=== PATIENT | male | born 1975 | race Caucasian/White ===

== ENCOUNTER 2020-03-29 17:56 | Inpatient (IN) | payer BC ==
[2020-03-29] MEDS ORDERED: SODIUM CHLORIDE 0.9% 1,000 ML IV STA (19:00)
--- NOTE | 2020-03-29 19:14 | ED ---
General Adult HPI - General Chief complaint: Eye Problems Stated complaint: sent by optho Time Seen by Provider: 03/29/20 18:10 Source: patient, family, RN notes reviewed Mode of arrival: ambulatory Limitations: no limitations - History of Present Illness Initial comments: Patient is a pleasant 45-year-old male presenting to the emergency department with blurry vision from the right eye. Onset of symptoms was a couple of weeks ago. Patient had steroids and improved however once he finished steroids symptoms are worse again. Patient does have headache behind his right eye. Patient did have outpatient computed tomography scan done of his brain and sinuses yesterday that were reported to him as normal. His facility is not currently open at this time and we are unable to confirm films. Patient did see his primary care physician again today as well as ophthalmology. Dr. Benavidez diagnosed patient with optic neuritis. Primary care physician was going to admit to their hospital however [facility] had 27 holes in the emergency department and therefore patient was advised to come here. Patient did have similar symptoms once ago associated with his left eye that he saw an church communications administrator over video conference secondary to Reyes virus and was told there could be optic neuritis at that time. Symptoms resolved at that time with oral steroids. Patient did have his eyes dilated prior to arrival. No extremity weakness or paresthesias. - Related Data Allergies Allergy/AdvReac Type Severity Reaction Status Date / Time cephalexin [From Keflex] Allergy Unknown Verified 03/29/20 18:17 Review of Systems ROS Statement: Those systems with pertinent positive or pertinent negative responses have been documented in the HPI. ROS Other: All systems not noted in ROS Statement are negative. Constitutional: Denies: fever Eyes: Reports: vision change (Blurry vision right eye). Denies: eye pain ENT: Denies: ear pain Respiratory: Denies: cough Cardiovascular: Denies: chest pain Endocrine: Denies: fatigue Gastrointestinal: Denies: abdominal pain Genitourinary: Denies: urgency Musculoskeletal: Denies: back pain Skin: Denies: rash Neurological: Reports: headache. Denies: weakness, confusion Past Medical History Past Medical History: Hypertension History of Any Multi-Drug Resistant Organisms: None Reported Past Surgical History: Adenoidectomy, Tonsillectomy Past Psychological History: Anxiety Smoking Status: Never smoker Past Alcohol Use History: Occasional Past Drug Use History: None Reported General Exam Limitations: no limitations General appearance: alert, in no apparent distress Head exam: Present: normocephalic Eye exam: Present: other (Bilateral pupils dilated. Left pupil reacts, right pupil does not react.) Expanded Eyelids: Normal Inspection: Bilateral Pupils: Reactive: Right (Nonreactive on the left), Mydriasis: Bilateral Sclera/Conjunctival: Normal Inspection: Bilateral Posterior chamber: Papilledema: Right ENT exam: Present: normal exam Neck exam: Present: normal inspection Respiratory exam: Present: normal lung sounds bilaterally Cardiovascular Exam: Present: regular rate, normal rhythm GI/Abdominal exam: Present: soft. Absent: tenderness Extremities exam: Present: normal inspection Neurological exam: Present: alert, oriented X3, CN II-XII intact (Except for right pupil nonreactive). Absent: motor sensory deficit Expanded Neurological exam: Present: protecting the airway Patient oriented to: Present: person, place, time Speech: Present: fluid speech Cranial nerves: EOM's Intact: Normal, Facial Sensation: Normal Sensory exam: Upper Extremity Light Touch: Normal, Lower Extremity Light Touch: Normal Motor strength exam: RUE: 5, LUE: 5, RLE: 5, LLE: 5 Eye Response: (4) open spontaneously Motor Response: (6) obeys commands Verbal Response: (5) oriented Psychiatric exam: Present: normal affect, normal mood Skin exam: Present: normal color Course Vital Signs 03/29/20 18:12 Temperature 98.5 F Pulse Rate 87 Respiratory 18 Rate Blood Pressure 128/89 O2 Sat by Pulse 98 Oximetry Medical Decision Making - Medical Decision Making Patient updated on plan. Case was discussed with Dr. prajapati with [facility], who will admit covering for hospital call. He agrees with neurology consult and high-dose steroid 1 g daily for 3 days - Lab Data Result diagrams: 03/29/20 19:16 03/29/20 19:16 Lab Results 03/29/20 03/29/20 Range/Units 19:16 19:16 WBC 10.7 H (3.8-10.6) k/uL RBC 5.00 (4.30-5.90) m/uL Hgb 17.2 (13.0-17.5) gm/dL Hct 50.3 (39.0-53.0) % MCV 100.8 H (80.0-100.0) fL MCH 34.4 (25.0-35.0) pg MCHC 34.1 (31.0-37.0) g/dL RDW 12.0 (11.5-15.5) % Plt Count 219 (150-450) k/uL Neutrophils % 80 % Lymphocytes % 11 % Monocytes % 6 % Eosinophils % 1 % Basophils % 1 % Neutrophils # 8.5 H (1.3-7.7) k/uL Lymphocytes # 1.2 (1.0-4.8) k/uL Monocytes # 0.6 (0-1.0) k/uL Eosinophils # 0.1 (0-0.7) k/uL Basophils # 0.1 (0-0.2) k/uL Sodium 137 (137-145) mmol/L Potassium 3.8 (3.5-5.1) mmol/L Chloride 107 (98-107) mmol/L Carbon Dioxide 24 (22-30) mmol/L Anion Gap 6 mmol/L BUN 22 H (9-20) mg/dL Creatinine 0.98 (0.66-1.25) mg/dL Est GFR (CKD-EPI)AfAm >90 (>60 ml/min/1.73 sqM) Est GFR (CKD-EPI)NonAf >90 (>60 ml/min/1.73 sqM) Glucose 110 H (74-99) mg/dL Calcium 9.3 (8.4-10.2) mg/dL Magnesium 2.1 (1.6-2.3) mg/dL Total Bilirubin 0.7 (0.2-1.3) mg/dL AST 23 (17-59) U/L ALT 30 (4-49) U/L Alkaline Phosphatase 80 (38-126) U/L Total Protein 6.4 (6.3-8.2) g/dL Albumin 3.9 (3.5-5.0) g/dL Disposition Clinical Impression: Optic neuritis Disposition: ADMITTED IP TO THIS HOSP Is patient prescribed a controlled substance at d/c from ED?: No Referrals: Michael Rose MD [Primary Care Provider] - 1-2 days Decision Time: 19:38
[2020-03-29 19:26] LABS: Basophils # (A) 0.1 k/uL (0-0.2); Basophils % (A) 1 %; Eosinophils # (A) 0.1 k/uL (0-0.7); Eosinophils % (A) 1 %; HCT 50.3 % (39.0-53.0); HGB 17.2 gm/dL (13.0-17.5); Lymphocytes # (A) 1.2 k/uL (1.0-4.8); Lymphocytes % (A) 11 %; MCH 34.4 pg (25.0-35.0); MCHC 34.1 g/dL (31.0-37.0); MCV 100.8 fL (80.0-100.0); Mean Platelet Volume 6.9; Monocytes # (A) 0.6 k/uL (0-1.0); Monocytes % (A) 6 %; Neutrophils # (A) 8.5 k/uL (1.3-7.7); Neutrophils % (A) 80 %; Platelet Count 219 k/uL (150-450); WBC 10.7 k/uL (3.8-10.6)
[2020-03-29 19:35] LABS: ALT 30 U/L (4-49); AST 23 U/L (17-59); African American GFR (CKD) >90 (>60 ml/min/1.73 sqM); Albumin 3.9 g/dL (3.5-5.0); Alkaline Phosphatase 80 U/L (38-126); Anion Gap 6 mmol/L; Blood Urea Nitrogen 22 mg/dL (9-20); Calcium 9.3 mg/dL (8.4-10.2); Carbon Dioxide 24 mmol/L (22-30); Chloride 107 mmol/L (98-107); Glucose 110 mg/dL (74-99); Magnesium 2.1 mg/dL (1.6-2.3); Non-African American GFR(CKD) >90 (>60 ml/min/1.73 sqM); Potassium 3.8 mmol/L (3.5-5.1); Sodium 137 mmol/L (137-145); Total Bilirubin 0.7 mg/dL (0.2-1.3); Total Protein 6.4 g/dL (6.3-8.2)
[2020-03-29] MEDS ORDERED: MORPHINE SULFATE 4 MG/ML SYRINGE IV PRN (19:45)
[2020-03-29] MEDS ORDERED: traMADol 50 MG TAB PO PRN (19:45)
[2020-03-29] MEDS ORDERED: NALOXONE 0.4 MG/ML 1 ML VIAL IV PRN (19:45)
[2020-03-29] MEDS ORDERED: methylPREDNISolone SOD SUCC 1,000 MG in SODIUM CHLORIDE 0.9% 250 ML IVPB ONE (20:00)
[2020-03-29] MEDS: SODIUM CHLORIDE 0.9% 1,000 ML IV SCH (20:05)
--- NOTE | 2020-03-29 20:08 | XR ---
EXAMINATION: XR chest 2V DATE AND TIME: 03/29/2020 7:36 PM CLINICAL INDICATION: Headache, vision changes, weak TECHNIQUE: Frontal and lateral views COMPARISON: None FINDINGS: The lungs are clear. The pleural spaces are negative. The cardiac silhouette is not enlarged. The remainder of the mediastinal silhouette is unremarkable. The skeletal structures and soft tissues are negative for acute findings. IMPRESSION: NO ACUTE PROCESS.
--- NOTE | 2020-03-29 21:12 | P.HPIM ---
History of Present Illness H&P Date: 03/29/20 The patient is a 45-year-old male with no known PMH who presented to the ED with complaints of blurred vision and headache. Patient reports that he initially had similar symptoms of left eye pain and blurred vision along with a left-sided throbbing headache back in August 2019 when he was seen by his primary who attributed the symptoms to a sinus infection as the patient also had rhinorrhea and congestion. The patient was given a steroid taper with which he quickly improved and his symptoms resolved. He then had recurrence of his symptoms 3 weeks ago when he developed right eye pain, blurred vision, along with a throbbing right-sided headache. He was again seen by his primary who give him another course of steroids with which she improved. The patient however again had recurrence of his symptoms this Tuesday 03/27 with the right eye symptoms and headache. He notes that the headache improves with Tylenol and Advil though was not fully relieved, currently at a 3 out of 10, improved by laying on the opposite side, not worsened with positional changes. He reports some eye pain with looking to each side along with his vision being blurry and somewhat dark in the right eye, with no issues with his left eye. The patient had a computed tomography scan done as ordered by his primary care physician yesterday which he was told was unremarkable. He was given an IM steroid shot which as per the patient provided him with only mild relief. The patient was seen by an manager motor earlier today who was concerned for optic neuritis and advised the patient to come to the emergency room to receive steroids. The patient however denied weakness, numbness, tingling. Denied urinary incontinence or discomfort. Patient also denied recent URIs or current congestion or rhinorrhea. Denied dizziness or loss of consciousness. Today Thursday, shortness of breath, fever, chills, nausea, vomiting, or abdominal pain or diarrhea. Laboratory evaluation was reviewed. Chest x-ray was unremarkable. Review of Systems Pertinent positives and negatives as discussed in HPI, a complete review of systems was performed and all other systems are negative. Past Medical History Past Medical History: Hypertension History of Any Multi-Drug Resistant Organisms: None Reported Past Surgical History: Adenoidectomy, Tonsillectomy Past Psychological History: Anxiety Smoking Status: Never smoker Past Alcohol Use History: Occasional Past Drug Use History: None Reported Medications and Allergies Home Medications Medication Instructions Recorded Confirmed Type Acetaminophen [Tylenol] 500 mg PO Q4-6H PRN 03/29/20 03/29/20 History Cetirizine HCl [Zyrtec] 10 mg PO DAILY PRN 03/29/20 03/29/20 History Ergocalciferol (Vitamin D2) 50,000 unit PO Q7D 03/29/20 03/29/20 History [Drisdol] Linette Westbrook (Unknown Stren 1 cap PO DAILY 03/29/20 03/29/20 History Ibuprofen [Motrin Ib] 800 mg PO Q8H PRN 03/29/20 03/29/20 History Metoprolol Tartrate 25 mg PO BID 03/29/20 03/29/20 History Milk Thistle 1 cap PO DAILY 03/29/20 03/29/20 History Vit C/E/Zn/Coppr/Lutein/Zeaxan 1 cap PO DAILY 03/29/20 03/29/20 History [Preservision Areds 2 Softgel] Vitamin B Complex/Folic Acid 0.4 mg PO DAILY 03/29/20 03/29/20 History [B-Complex Tablet] Vitamin C/Biotin [Hair, Skin and 1 tab PO DAILY 03/29/20 03/29/20 History Nails] Allergies Allergy/AdvReac Type Severity Reaction Status Date / Time cephalexin [From Keflex] Allergy Unknown Verified 03/29/20 20:03 Physical Exam Vitals: Vital Signs Temp Pulse Resp BP Pulse Ox 03/29/20 20:12 81 16 141/98 98 03/29/20 18:12 98.5 F 87 18 128/89 98 Intake and Output 03/29/20 03/29/20 03/29/20 06:59 14:59 22:59 Other: Weight 85.729 kg General: non toxic, no distress, appears at stated age, normal weight Derm: no unusual rashes/lesions no unusual ecchymoses, warm, dry Head: atraumatic, normocephalic, symmetric Eyes: EOMI, no lid lag, anicteric sclera, pupils equal round reactive to light, no facial tenderness, reported eye pain upon medial and lateral gaze of the right eye ENT: Nose and ears atraumatic, no thrush, no pharyngeal erythema Neck: No thyromegaly, no cervical lymphadenopathy, trachea midline, supple Mouth: no lip lesion, mucus membranes moist Cardiovascular: S1S2 reg, no murmur, positive posterior tibial pulse bilateral, no edema, capillary refill less than 2 seconds Lungs: CTA bilateral, no rhonchi, no rales , no accessory muscle use Abdominal: soft, nontender to palpation, no guarding, no appreciable organomegaly, normal bowel sounds Ext: no gross muscle atrophy, muscle strength 5 out of 5 in all 4 extremities grossly, no contractures, Neuro: CN II-XI grossly intact, light touch intact all 4 extremities, finger to nose within normal limits, kernigs and brudzinskis negative Psych: Alert, oriented, appropriate affect Results CBC & Chem 7: 03/29/20 19:16 03/29/20 19:16 Labs: Abnormal Lab Results - Last 24 Hours (Table) 03/29/20 03/29/20 Range/Units 19:16 19:16 WBC 10.7 H (3.8-10.6) k/uL MCV 100.8 H (80.0-100.0) fL Neutrophils # 8.5 H (1.3-7.7) k/uL BUN 22 H (9-20) mg/dL Glucose 110 H (74-99) mg/dL Assessment and Plan Plan: Suspected optic neuritis -Continue with Solu-Medrol 250 q6h for total of 3 days -Neuro checks and visual acuity testing -Neurology consulted -Insulin supplementation scale -Obtain MRI orbit and Brain. Will defer to Neurology regarding need for LP for suspected MS diagnosis. Leukocytosis, likely reactive to recent steroid doses -Monitor for now DVT prophylaxis -Heparin subq The patient is admitted with an anticipated greater than 2 midnight stay for evaluation of optic neuritis CODE STATUS: Full Code Discussed with: Patient Anticipated discharge date: 03/[address]: Home A total of 35 minutes was spent on the care of this complex patient more than 50% of the time was spent in counseling and care coordination.
[2020-03-30] MEDS: HEPARIN SODIUM,PORCINE 5,000 UNIT/ML 1 ML VIAL SQ SCH ×4 (01:01→23:59)
[2020-03-30 06:11] LABS: Appearance,Urine Clear (Clear); Bilirubin,Urine Negative (Negative); Blood,Urine Negative (Negative); Color,Urine Yellow; Glucose,Urine (UA) Trace (Negative); Ketones,Urine Trace (Negative); Leukocyte Esterase,Urine Negative (Negative); Nitrite,Urine Negative (Negative); Protein,Urine Negative (Negative); Specific Gravity,Urine 1.019 (1.001-1.035); Urobilinogen,Urine <2.0 mg/dL (<2.0)
[2020-03-30 07:07] LABS: Glucose,Whole Blood 142 mg/dL (75-99)
[2020-03-30] MEDS: METOPROLOL TARTRATE 25 MG TAB PO SCH ×2 (08:25→20:41)
[2020-03-30] MEDS: INSULIN ASPART (NovoLOG) 100 UNIT/ML VIAL SQ SCH ×4 (08:26→20:40)
[2020-03-30] MEDS: PANTOPRAZOLE 40 MG/10 ML VIAL IVP SCH (08:29)
[2020-03-30] MEDS ORDERED: LORazepam 0.5 MG TAB PO ONE (10:30)
--- NOTE | 2020-03-30 11:23 | P.CNNES ---
History of Present Illness Consult date: 03/30/20 Requesting physician: Humberto Ivan Reason for Consult: concern for optic neuritis History of Present Illness: This is a 45-year-old left-handed gentleman with medical history of hypertension that presented to emergency department on 03/29/2020 for complaints of blurry vision over the right eye as well as headaches. The symptoms began was about 3 weeks ago when he developed right eye pain (with any movement), blurry vision along with Pain around and retroorbital pain. Patient was seen by his primary care physician and was given a tapering dose of steroids which at he improved. Then on 03/27/2020 patient had the again recurrence of the right eye pain with headache. He felt the pain improved with Tylenol and Advil but not fully relieved. Patient had that a CT scan that was done by his primary care physician 2 days ago and the was reported unremarkable per patient. He was given IM steroids which with mild relief. He was seen by an farm contractor buyer earlier yesterday (Dr. Benavidez) and notified patient he had right optic nerve swelling. He thought he had optic neuritis and advised the patient come to the emergency to receive IV steroids. Of note patient had similar presentation to the left eye and the patient had rhinorrhea and congestion in August 2019. He was seen by his primary care physician where he attributed to sinus infection the patient the was given a tapering the steroid dose. His symptoms resolved. Of note patient stated that he was supposed to get MRI of the brain as well as the orbits when he had that his symptoms of the left eye but since his symptoms resolved he decided not to get it. Of note the patient denies of any fever, neck pain or lower back pain that. Denies of weakness, numbness or any difficulty getting his words out. He denies of any diplopia. She denies of any urinary or bowel symptoms. Patient denies of any family history similar to his presentation. The patient denies of family history of multiple sclerosis. In the hospital because of the suspected optic neuritis he was given 1gm of Solumedrol yesterday and patient felt his pain is resolved but continues to have blurry vision out of right eye. He felt the 1 g dose caused him to have palpitation, he didn't feel right when he received a 1 g dose. He was placed on Solu-Medrol 250 mg every 6 hours for total 3 days. And MRI of the brain as well as the orbits was ordered by the primary team. Review of Systems Review of system: The 12 point system was reviewed and apparent positive and negative per HPI. Past Medical History Past Medical History: Hypertension Additional Past Medical History / Comment(s): Left optical neuritis History of Any Multi-Drug Resistant Organisms: None Reported Past Surgical History: Adenoidectomy, Tonsillectomy Past Anesthesia/Blood Transfusion Reactions: No Reported Reaction Past Psychological History: Anxiety Smoking Status: Never smoker Past Alcohol Use History: Occasional Past Drug Use History: None Reported Medications and Allergies Home Medications Medication Instructions Recorded Confirmed Type Acetaminophen [Tylenol] 500 mg PO Q4-6H PRN 03/29/20 03/29/20 History Cetirizine HCl [Zyrtec] 10 mg PO DAILY PRN 03/29/20 03/29/20 History Ergocalciferol (Vitamin D2) 50,000 unit PO Q7D 03/29/20 03/29/20 History [Drisdol] Linette Westbrook (Unknown Stren 1 cap PO DAILY 03/29/20 03/29/20 History Ibuprofen [Motrin Ib] 800 mg PO Q8H PRN 03/29/20 03/29/20 History Metoprolol Tartrate 25 mg PO BID 03/29/20 03/29/20 History Milk Thistle 1 cap PO DAILY 03/29/20 03/29/20 History Vit C/E/Zn/Coppr/Lutein/Zeaxan 1 cap PO DAILY 03/29/20 03/29/20 History [Preservision Areds 2 Softgel] Vitamin B Complex/Folic Acid 0.4 mg PO DAILY 03/29/20 03/29/20 History [B-Complex Tablet] Vitamin C/Biotin [Hair, Skin and 1 tab PO DAILY 03/29/20 03/29/20 History Nails] Allergies Allergy/AdvReac Type Severity Reaction Status Date / Time cephalexin [From Keflex] Allergy Unknown Verified 03/29/20 20:03 Physical Examination - Vital Signs Vital Signs: Vital Signs Temp Pulse Pulse Resp BP BP Pulse Ox 03/30/20 05:00 97.6 F 94 18 126/78 97 03/30/20 00:10 20 03/29/20 21:00 97.8 F 101 H 20 143/93 99 03/29/20 20:35 20 03/29/20 20:12 81 16 141/98 98 03/29/20 18:12 98.5 F 87 18 128/89 98 Intake and Output 03/29/20 03/29/20 03/30/20 14:59 22:59 06:59 Intake Total 400 600 Balance 400 600 Intake: Intake, IV Titration 400 600 Amount Sodium Chloride 0.9% 1, 150 600 000 ml @ 75 mls/hr IV . [id number] STA Rx#:[id number] methylPREDNISolone SOD 250 SUCC 1,000 mg In Sodium Chloride 0.9% 250 ml @ 250 mls/hr IVPB ONCE ONE Rx#:[id number] Other: Voiding Method Toilet Toilet Urinal Urinal # Voids 2 2 Weight 85.729 kg GENERAL: The patient is lying in bed and is not in acute distress. CHEST: The heart rate is regular rate rhythm. No murmurs to auscultation. LUNG: Clear to auscultation bilaterally no wheezing noted throughout. Not labored breathing. ABDOMEN/GI: Bowel sounds present in all 4 quadrants. No tenderness to palpation throughout. NEUROLOGICAL: Higher mental function: The patient is awake, alert, oriented to self, place and time. Patient is following commands. No aphasia and no neglect. Cranial nerves: The pupils are round , equal (4mm bilaterally) and reactive to light and accommodation. +ve afferent pupillary defect on the right eye. Visual equity is 20/100 OD and with correction. Visual chen are full to confrontation throughout. Extraocular movement is intact no nystagmus is noted. Facial sensation is normal to touch throughout. The facial strength is normal throughout. Hearing is normal bilaterally to hand rub. Tongue is midline and moved [id number] without any difficulty. No dysarthria is noted. Shoulder shrug is normal bilaterally. Motor: Gait is normal with normal arm swings. The strength is 5 over 5 throughout. Normal tone and bulk. Cerebellum: Normal finger to nose bilaterally. Sensation: Sensation is normal to touch throughout. Reflexes (right/left): 2+ throughout. Plantars are downgoing bilaterally. Results AST 23, ALT of 30. C-reactive protein is less than 5. - Laboratory Findings CBC and BMP: 03/29/20 19:16 03/29/20 19:16 Abnormal Lab Findings: Abnormal Labs 03/29/20 03/29/20 03/30/20 19:16 19:16 06:00 WBC 10.7 H MCV 100.8 H Neutrophils # 8.5 H BUN 22 H Glucose 110 H Urine Glucose (UA) Trace H Urine Ketones Trace H Assessment and Plan Assessment: Suspected optic neuritis of right eye Likely old left Optic neuritis Leukocytosis is reactive from steroid use Hx Hypertension Plan: Pending MRI the brain as well as the orbits with and without gadolinium. I also ordered MRI of the C-spine as well. Patient not too enthusiastic about getting a lumbar puncture so will hold off until getting the images. Patient received one time dose of Solu-Medrol 1000 mg yesterday. Currently he is on Solu-Medrol 250 mg every 6 hours. I will change it to 500 mg twice a day for total 2 days (stop date on 04/01/20 at 2200) since he received 1 gm yesterday. After getting MRI the brain and orbit recommend getting lumbar puncture. CSF opening and closing pressure, cell count, protein, CSF glucose and oligoclonal bands. We'll consult anesthesiology for the lumbar puncture. Placed the patient on glucose monitoring 3 times a day. I so placed him on insulin NovoLog sliding scale. For GI prophylaxis the patient is on Protonix. Plan we'll discussed with the patient. Thank you for the consultation. Addendum: I received a call from the nurse that the patient cannot get MRI since he was claustrophobic. I notified the nurse that I can give him Ativan but he refused. He said that he will get an open MRI as an outpatient. Patient also refused to get lumbar puncture. He is in agreement of getting two days of IV steroids. He said that the sooner he leaves the hospital the better. Ilya Bass MD Neuro-hospitalist Time with Patient: Greater than 30
[2020-03-30 12:38] LABS: Glucose,Whole Blood 130 mg/dL (75-99)
[2020-03-30 17:15] LABS: Glucose,Whole Blood 146 mg/dL (75-99)
[2020-03-30] MEDS: SODIUM CHLORIDE 0.9% 1,000 ML IV SCH (19:28)
[2020-03-30] MEDS ORDERED: methylPREDNISolone SOD SUCC 1,000 MG in SODIUM CHLORIDE 0.9% 250 ML IVPB SCH (20:00)
[2020-03-30] MEDS: ACETAMINOPHEN TAB 325 MG TAB PO PRN (20:42)
[2020-03-30 20:45] LABS: Glucose,Whole Blood 146 mg/dL (75-99)
[2020-03-31 07:07] LABS: Glucose,Whole Blood 134 mg/dL (75-99)
[2020-03-31] MEDS: HEPARIN SODIUM,PORCINE 5,000 UNIT/ML 1 ML VIAL SQ SCH ×3 (07:37→21:24)
[2020-03-31] MEDS: INSULIN ASPART (NovoLOG) 100 UNIT/ML VIAL SQ SCH ×4 (07:37→20:22)
[2020-03-31] MEDS: PANTOPRAZOLE 40 MG/10 ML VIAL IVP SCH (08:11)
[2020-03-31] MEDS: METOPROLOL TARTRATE 25 MG TAB PO SCH ×2 (08:12→20:22)
--- NOTE | 2020-03-31 09:53 | P.PN ---
Subjective Progress Note Date: 03/31/20 Patient is doing fairly well today. He denies any eye pain. He reports mild vision problem in his right side that he described as ''fading''. He was unable to complete MRI yesterday secondary to severe claustrophobia despite getting Ativan before the test. He already scheduled an outpatient open MRI on the of the month. No acute events overnight. Objective - Vital Signs Vital signs: Vital Signs Temp 97.5 F L 03/31/20 05:00 Pulse 106 H 03/31/20 05:00 Resp 18 03/31/20 05:00 BP 121/81 03/31/20 05:00 Pulse Ox 99 03/31/20 05:00 Intake & Output 03/30/20 03/31/20 03/31/20 18:59 06:59 18:59 Intake Total 1930 Output Total 700 Balance 1930 -700 Intake: Intake, IV Titration 340 Amount Sodium Chloride 0.9% 1, 160 000 ml @ 20 mls/hr IV . Q24H FRANCIE Rx#:[id number] Sodium Chloride 0.9% 1, 80 000 ml @ 75 mls/hr IV . [id number] STA Rx#:[id number] methylPREDNISolone SOD 100 SUCC 500 mg In Sodium Chloride 0.9% 100 ml @ 200 mls/hr IVPB Q12H FRANCIE Rx#:[id number] Oral 1590 Output: Urine 700 Other: Voiding Method Toilet Toilet Urinal # Voids 3 2 - Exam General: The patient is awake and alert, in no distress Eye: there is normal conjunctiva bilaterally. Neck: The neck is supple, there is no JVD. Cardiovascular: Normal S1-S2, no S3-S4, no murmurs. Respiratory: Lungs clear to auscultation bilaterally Gastrointestinal: Abdomen is soft, nontender Musculoskeletal: There is no pedal edema. Neurological:. Speech is normal. Skin: Skin is warm and dry - Labs CBC & Chem 7: 03/29/20 19:16 03/29/20 19:16 Labs: Abnormal Lab Results - Last 24 Hours (Table) 03/30/20 03/30/20 03/30/20 Range/Units 12:34 17:11 20:40 POC Glucose (mg/dL) 130 H 146 H 146 H (75-99) mg/dL 10/10/20 Range/Units 06:56 POC Glucose (mg/dL) 134 H (75-99) mg/dL Assessment and Plan Assessment: This is a 45-year-old male with past medical history significant for essential hypertension who presented to the emergency room complaining of blurry vision that started before the night of his presentation. Patient was seen by an raymond mill operator prior to ER presentation was thought to have acute optic neuritis. He was sent to be admitted to the hospital for further management of his medical problems noted below. 1. Optic neuritis of the right eye, started on high-dose IV Solu-Medrol as directed by neurology. Seen and evaluated by neurology. Last dose of Solu- Medrol would be 10/10 at night. He was unable to complete MRI secondary to severe claustrophobia despite getting Ativan before the test. He already scheduled an outpatient open MRI on the of the month. 2. Essential hypertension, blood pressure well-controlled 3. Mild leukocytosis, secondary to steroid use. No evidence of infection.
[2020-03-31 17:15] LABS: Glucose,Whole Blood 132 mg/dL (75-99)
[2020-03-31] MEDS: SODIUM CHLORIDE 0.9% 1,000 ML IV SCH (19:26)
[2020-03-31 20:11] LABS: Glucose,Whole Blood 142 mg/dL (75-99)
[2020-03-31] MEDS: ACETAMINOPHEN TAB 325 MG TAB PO PRN (20:24)
[2020-04-01 04:26] VITALS: BP 120/78; PULSE 80; RESP 14; TEMP 97.4
[2020-04-01 07:05] LABS: Glucose,Whole Blood 122 mg/dL (75-99)
[2020-04-01] MEDS: INSULIN ASPART (NovoLOG) 100 UNIT/ML VIAL SQ SCH (07:23)
[2020-04-01] MEDS: HEPARIN SODIUM,PORCINE 5,000 UNIT/ML 1 ML VIAL SQ SCH (07:23)
[2020-04-01] MEDS: PANTOPRAZOLE 40 MG/10 ML VIAL IVP SCH (09:02)
[2020-04-01] MEDS: METOPROLOL TARTRATE 25 MG TAB PO SCH (09:02)
--- NOTE | 2020-04-01 09:25 | P.DS ---
Providers Date of admission: 03/29/20 19:47 Expected date of discharge: 04/01/20 Attending physician: Kymberly Arana MD Consults: 03/29/20 19:45 Consult Physician Urgent Consulting Provider: Ilya Bass Consult Reason/Comments: Evaluate for optic neuritis Do you want consulting provider notified?: Yes Primary care physician: [facility] Course: This is a 45-year-old male with past medical history significant for essential hypertension who presented to the emergency room complaining of blurry vision that started before the night of his presentation. Patient was seen by an steel hanger prior to ER presentation was thought to have acute optic neuritis. He was sent to be admitted to the hospital for further management of his medical problems noted below. 1. Optic neuritis of the right eye, started on high-dose IV Solu-Medrol as directed by neurology. Seen and evaluated by neurology. Last dose of Solu- Medrol would be 10/10 at night. He was unable to complete MRI secondary to severe claustrophobia despite getting Ativan before the test. He already scheduled an outpatient open MRI on the of the month. 2. Essential hypertension, blood pressure well-controlled Patient advised to get open MRI done outpatient and follow up with neurology for further workup and to rule out underlying MS Patient will be discharged home in a stable condition. For further details about this hospitalization please refer to the electronic chart. Time spent on discharge > 30 minutes including counseling and coordination of Patient Condition at Discharge: Fair Plan - Discharge Summary Discharge Rx Participant: No New Discharge Prescriptions: Continue Vitamin C/Biotin [Hair, Skin and Nails] 1 tab PO DAILY Vitamin B Complex/Folic Acid [B-Complex Tablet] 0.4 mg PO DAILY Milk Thistle 1 cap PO DAILY Vit C/E/Zn/Coppr/Lutein/Zeaxan [Preservision Areds 2 Softgel] 1 cap PO DAILY Linette Westbrook (Unknown Stren 1 cap PO DAILY Ibuprofen [Motrin Ib] 800 mg PO Q8H PRN PRN Reason: Pain Cetirizine HCl [Zyrtec] 10 mg PO DAILY PRN PRN Reason: Allergy Symptoms Acetaminophen [Tylenol] 500 mg PO Q4-6H PRN PRN Reason: Pain Metoprolol Tartrate 25 mg PO BID Ergocalciferol (Vitamin D2) [Drisdol] 50,000 unit PO Q7D Discharge Medication List Acetaminophen [Tylenol] 500 mg PO Q4-6H PRN 03/29/20 [History] Cetirizine HCl [Zyrtec] 10 mg PO DAILY PRN 03/29/20 [History] Ergocalciferol (Vitamin D2) [Drisdol] 50,000 unit PO Q7D 03/29/20 [History] Linette Westbrook (Unknown Stren 1 cap PO DAILY 03/29/20 [History] Ibuprofen [Motrin Ib] 800 mg PO Q8H PRN 03/29/20 [History] Metoprolol Tartrate 25 mg PO BID 03/29/20 [History] Milk Thistle 1 cap PO DAILY 03/29/20 [History] Vit C/E/Zn/Coppr/Lutein/Zeaxan [Preservision Areds 2 Softgel] 1 cap PO DAILY 03/29/20 [History] Vitamin B Complex/Folic Acid [B-Complex Tablet] 0.4 mg PO DAILY 03/29/20 [History] Vitamin C/Biotin [Hair, Skin and Nails] 1 tab PO DAILY 03/29/20 [History] Follow up Appointment(s)/Referral(s): Michael Rose MD [Primary Care Provider] - 1-2 days Activity/Diet/Wound Care/Special Instructions: Please keep outpatient appointment for an open MRI on 04/04/2020 Discharge Disposition: HOME SELF-CARE
== END 2020-04-01 11:34 | disposition home or self-care (01) | DRG 123 ==
LOC: EC 17:56 → 6NMEDSUR 19:47
PROVIDERS: ADMIT Internal Medicine; ATTEND Internal Medicine
DX: H46.9 Unspecified optic neuritis (principal); I10 Essential (primary) hypertension; F41.9 Anxiety disorder, unspecified; T38.0X5A Adverse effect of glucocorticoids and synthetic analogues, initial encounter; D72.829 Elevated white blood cell count, unspecified; F40.240 Claustrophobia; Z88.1 Allergy status to other antibiotic agents; Z90.89 Acquired absence of other organs; Z79.899 Other long term (current) drug therapy
CPT/HCPCS: 36415; 71046; 80053; 81003; 83735; 85025; 85652; 86140; 86780; 96360; 99285

== ENCOUNTER → 2020-05-23 | Outpatient (CLI) | payer BC ==
[2020-05-23 12:24] LABS: Basophils # (A) 0.1 k/uL (0-0.2); Basophils % (A) 1 %; Eosinophils # (A) 0.1 k/uL (0-0.7); Eosinophils % (A) 1 %; HGB 16.9 gm/dL (13.0-17.5); Lymphocytes # (A) 1.7 k/uL (1.0-4.8); Lymphocytes % (A) 22 %; MCH 34.8 pg (25.0-35.0); MCHC 34.5 g/dL (31.0-37.0); MCV 100.7 fL (80.0-100.0); Mean Platelet Volume 6.8; Monocytes # (A) 0.5 k/uL (0-1.0); Monocytes % (A) 7 %; Neutrophils # (A) 5.2 k/uL (1.3-7.7); Neutrophils % (A) 68 %; Platelet Count 237 k/uL (150-450); RBC 4.87 m/uL (4.30-5.90); RDW 12.4 % (11.5-15.5); WBC 7.7 k/uL (3.8-10.6)
[2020-05-23 20:19] LABS: African American GFR (CKD) 104.1 (60.0-200.0); Albumin 4.4 g/dL (3.80-4.90); Albumin/Globulin Ratio 2.59 (1.60-3.17); Anion Gap 9.4 mmol/L (4.00-12.00); Calcium 9.8 mg/dL (8.7-10.3); Carbon Dioxide 25.6 mmol/L (21.6-31.8); Globulin 1.7 g/dL (1.6-3.3); Non-African American GFR(CKD) 89.9 (60.0-200.0); Potassium 4.1 mmol/L (3.5-5.5); Total Bilirubin 0.7 mg/dL (0.2-1.2); Total Protein 6.1 g/dL (6.2-8.2)
[2020-05-23 20:27] LABS: T4, Free (Free Thyroxine) 1.2 ng/dL (0.80-1.80)
[2020-05-23 20:30] LABS: Folate, Serum 7.2 ng/mL
[2020-05-23 20:58] LABS: Hepatitis B Core IgM Non-Reactive (Non-Reactive); Hepatitis B Surface AB- Quant 3.5 mIU/mL; Hepatitis B Surface Antibody Non-Reactive (Non-Reactive); Hepatitis B Surface Antigen Non-Reactive (Non-Reactive)
[2020-05-23 21:59] LABS: HIV 2 AB Non-Reactive (Non-Reactive); HIV AB P24 Non-Reactive (Non-Reactive); HIV P24 AG Non-Reactive (Non-Reactive)
[2020-05-23 22:44] LABS: Appearance,CSF Clear; CSF Tube Number 4
[2020-05-23 22:45] LABS: CSF Tube Volume 3; Nucleated Cells, CSF 1 u/L (0-5); Red Blood Cell,CSF 0 u/L (0-10)
[2020-05-23 22:51] LABS: Total Protein,CSF 43 mg/dL (12-60)
[2020-05-24 15:51] LABS: Hemoglobin A1C 4.5 % (4.0-6.0)
[2020-05-25 05:41] LABS: Varicella IgM Antibody 0.43 INDEX (<=0.90)
== END | disposition home or self-care (01) ==
LOC: LABWHC1 11:31
PROVIDERS: ATTEND Psychiatry & Neurology Pain Medicine
DX: H53.9 Unspecified visual disturbance (principal); R51.9 Headache, unspecified; H46.8 Other optic neuritis; G93.9 Disorder of brain, unspecified
CPT/HCPCS: 36415; 80053; 82306; 82607; 82746; 83036; 83873; 84157; 84207; 84425; 84439; 84443; 84481; 84591; 85025; 86704; 86705; 86706; 86787; 87340; 87390; 87801; 89050